=== PATIENT | female | born 1970 | race Hispanic/Latino ===

== ENCOUNTER 2024-02-10 03:34 | Emergency (ER) | payer BC ==
[~2024-02-10] VITALS: Ht 149.9 cm; Wt 72.6 kg
[2024-02-10] MEDS: KETOROLAC TROMETHAMINE 60 MG/2 ML VIAL IM STA (04:05)
[2024-02-10] MEDS: FENTANYL CITRATE/PF 100MCG/2 ML INJ IV ONE (04:36)
[2024-02-10] MEDS ORDERED: KETOROLAC TROME10 MG PO (04:56)
[2024-02-10] MEDS ORDERED: ULTRAM 50MG50 MG PO (04:56)
[2024-02-10] MEDS ORDERED: ONDANSETRON ODT4 MG PO (04:56)
[2024-02-10 05:25] VITALS: PULSE 102; RESP 18; TEMP 98.7; O2SAT 96
== END 2024-02-10 05:20 | disposition home or self-care (01) ==
LOC: ER 03:40
DX: S82.52XA Displaced fracture of medial malleolus of left tibia, initial encounter for closed fracture (principal); S82.492A Other fracture of shaft of left fibula, initial encounter for closed fracture; X50.1XXA Overexertion from prolonged static or awkward postures, initial encounter; Y93.01 Activity, walking, marching and hiking; Y92.89 Other specified places as the place of occurrence of the external cause; I10 Essential (primary) hypertension; E78.5 Hyperlipidemia, unspecified; I34.1 Nonrheumatic mitral (valve) prolapse; F10.129 Alcohol abuse with intoxication, unspecified
CPT/HCPCS: 29515; 73610; 73630; 99284; J1885; J3010